=== PATIENT | female | born 1965 | race Caucasian/White ===

== ENCOUNTER → 2023-04-24 17:30 | Outpatient (REF) | payer BC, SELFPAY | LOC: HWWDC 17:30 | PROVIDERS: ATTENDING PHYSICIAN Nurse Practitioner Family | DX: Z13.9 Encounter for screening, unspecified (principal); Z12.31 Encounter for screening mammogram for malignant neoplasm of breast | CPT/HCPCS: 77063; 77067 ==

== ENCOUNTER → 2023-04-29 06:22 | Day surgery (SDC) | payer BC, SELFPAY | LOC: GI 06:22 | PROVIDERS: ATTENDING PHYSICIAN Internal Medicine Gastroenterology; FAMILY PHYSICIAN Nurse Practitioner Family | DX: Z12.11 Encounter for screening for malignant neoplasm of colon (principal); R19.5 Other fecal abnormalities; K57.30 Diverticulosis of large intestine without perforation or abscess without bleeding; K64.0 First degree hemorrhoids; D12.4 Benign neoplasm of descending colon; D12.2 Benign neoplasm of ascending colon; D12.3 Benign neoplasm of transverse colon; D12.5 Benign neoplasm of sigmoid colon; K63.5 Polyp of colon; Z80.0 Family history of malignant neoplasm of digestive organs | CPT/HCPCS: 45385; 45381; 45380; 88305 ==

== ENCOUNTER 2023-05-25 20:46 | Emergency (ER) | payer BC, SELFPAY ==
[2023-05-25 20:49] VITALS: BP 140/82
--- NOTE | 2023-05-25 21:24 | ED.SKININJ ---
HPI-Injury
General
Chief Complaint: Skin Surface Trauma
Source: patient
Exam Limitations: none
Time Seen by Provider: 05/25/23 21:02
Travel History
Have you had any contact with someone who has COVID-19?: No
Do you have any symptoms of coronavirus? Fever > 100 degrees, chills, cough, shortness of breath, sore throat, loss of taste or smell, muscle aches, or headache?: No
History of Present Illness-Injury
Is this injury a work related problem?: No
Is pt an associate of [facility]?: No
Initial Injury comments:
This is a 57 year old female that comes in with c/o laceration to her finger. States that she was taking out the trash and the bag broke. States that she went to put in into another bag and cut her finger either with a cat food or dog can. States
that she is up to date on her Tetanus. Denies any fever, chills, chest pain, SOB, abd pain, nausea, vomiting, diarrhea, headache, dizziness.
Past History
Past History
ED Past Medical History: None; Negative Asthma, HTN, Hypercholesterolemia or NIDDM
ED Past Surgical History: Appendectomy and Other (Cyst removed from left knee)
Social History
Tobacco: Former smoker
Alcohol: Occasional
Drug: None
Personal: Single
Living: with family
Employment: Employed
Family History
Family History: Other (Noncontributory)
Review of Systems
Review of Systems
All Other Systems: ROS reviewed and negative except as documented in HPI and ROS
Constitutional: Reports no symptoms; Denies fever or chills
EENT: Reports no symptoms
Respiratory: Reports no symptoms; Denies cough or trouble breathing
Cardiac: Reports no symptoms; Denies chest pain
ABD/GI: Reports no symptoms; Denies abdominal pain, nausea, vomiting or diarrhea
: Reports no symptoms
Musculoskeletal: Reports no symptoms
Skin: Reports other (Laceration to the right third finger)
Neurological: Reports no symptoms; Denies dizzy or headache
Psychiatric: Reports no symptoms
Skin Exam
Laceration
Right Third Finger:
Length in cm: 3
Orientation: horizontal
Type of Laceration: simple
Any active bleeding?: low grade venous oozing
Distal skin color and temperature: normal-warm & good color
Normal distal neurovascular exam: Yes
Range of motion: full
Phy Exam
General Physical Exam
General Presentation: well appearing and no apparent distress
General age: appears stated age
General Skin: warm and dry
General Habitus: normal
General Mental: alert
General Hydration: appears well hydrated
Eye Exam
Eye Exam: EOMI
Musculoskeletal Exam
Musculoskeletal Exam: full ROM, no edema and other ( Patient able to flex finger and push against resistance without difficulty)
Skin Exam
Skin Exam: normal color, warm/dry, no rash, no petechia and laceration (Right proximal third finger)
Psychiatric Exam
Psychiatric Exam: normal mood/affect
Course
Vital Signs
Initial and Last Documented VS:
Initial Vital Signs
Temp Pulse Resp BP Pulse Ox
98 F 80 18 140/82 96
05/25/23 20:49 05/25/23 20:49 05/25/23 20:49 05/25/23 20:49 05/25/23 20:49
Last Documented Vital Signs
Temp Pulse Resp BP Pulse Ox
98 F 80 18 140/82 96
05/25/23 20:49 05/25/23 20:49 05/25/23 20:49 05/25/23 20:49 05/25/23 20:49
Procedures
Laceration Closure
Right Proximal Third Finger:
Status of Wound: clean
Size of Wound in cm: 3
Description of Wound Edges: sharp
Preparation: cleaned with saline
Anesthesia: 1% Lidocaine
Revision/Debridement: routine- no revision
Wound exploration: explored to base- no FB
Type of Closure: single layer closure
Skin Closure Material: 3-0 nylon
Number of sutures: 7
MDM/Problems Addressed
Differential Diagnosis Includes:
laceration finger
MDM/Problems Addressed:
This is a 57 year old female that comes in with c/o lacerationto the right third finger. States that she cut this on a cat or dog food can as she was taking out the trash and the bag broke. States that she is up to date on her Tetanus.
Will suture and discharge patient home.
Chronic conditions affecting care:
NA
Acute Exacerbation and/or Progression of Chronic Illness:
NA
*Pulse Oximetry
Patient hypoxic: no
*EKG
Interpreted by ED Provider?: NA
Rate: EKG- N/A
*Study Abroad Coordinator Interpretation
Rate: Study Abroad Coordinator- N/A
*Critical Care Note
Total Time (30-74mins, 75-104mins- exclusive of procedures): Not Applicable
ED Attending Note
-
Portions of this chart may have been created with voice recognition software.� Occasional wrong word or��sound alike� substitutions may have occurred due to the inherent limitations of voice recognition software.
Discharge Plan
Departure
Patient Disposition: Home (Routine Discharge)
Date of Disposition: 05/25/23
Time of Disposition: 21:31
Patient with high blood pressure during this ER visit?: Yes
Condition: Good
Covid-19: Not Applicable
Discharge Problem:
Laceration of finger of right hand
Instructions: Laceration Repair With Stitches (DC), BLOOD PRESSURE
Prescriptions:
No Action
acetaminophen 325 MG tablet
650 mg PO Q4HPRN PRN (Reason: pain/fever) Qty: 0 0RF
codeine-guaifenesin [Guaiatussin AC] 10 ML liquid
10 ml PO Q4HPRN PRN (Reason: cough) Qty: 0 0RF
azithromycin [Zithromax] 500 MG tablet
500 mg PO DAILY Qty: 4 0RF
prednisone 10 MG tablet
10 mg PO .TAPER Qty: 30 0RF
Rx Instructions:
Take 40mg daily x2days, 30mg daily x2days, 20mg daily x2days, 10mg daily x2days.
cefuroxime axetil 500 MG tablet
500 mg PO BID Qty: 10 0RF
levalbuterol tartrate 1 PUFF HFA aerosol inhaler
2 puff inhalation R TID Qty: 1 0RF
Activity Restrictions/Additional Instructions:
As discussed, you had a laceration repair with 7 sutures placed. Please keep this dry for the next 24 hours. After this you may gently wash with warm soapy water and pat. Follow up with the familly doctor in the next 10-14 days for suture removal.
IF YOU HAVE ANY REDNESS, OR DRAINAGE OR YOU HAVE ANY OTHER CONCERNS PLEASE RETURN TO THE EMERGENY ROOM.
Interventions
Interventions:
*Risk Screen - Suicide Last Done: 05/25/23 20:49
*Neglect/Abuse Screening Last Done: 05/25/23 20:49
ED-Skin Assessment Last Done: 05/25/23 21:18
== END 2023-05-25 21:35 | disposition home or self-care (01) ==
LOC: EMR 20:46
PROVIDERS: EMERGENCY PHYSICIAN Student in an Organized Health Care Education/Training Program; FAMILY PHYSICIAN Nurse Practitioner Family
DX: S61.212A Laceration without foreign body of right middle finger without damage to nail, initial encounter (principal); W26.8XXA Contact with other sharp object(s), not elsewhere classified, initial encounter; Z87.891 Personal history of nicotine dependence; R03.0 Elevated blood-pressure reading, without diagnosis of hypertension
CPT/HCPCS: 99282; 12002

== ENCOUNTER 2023-07-19 07:05 | Day surgery (SDC) | payer BC, SELFPAY ==
[2023-07-19 09:06] VITALS: BP 132/74
[2023-07-19 09:33] VITALS: BMI 26.8
[2023-07-19 11:39] VITALS: BP 112/96
[2023-07-19 11:45] VITALS: BP 101/66
[2023-07-19 12:00] VITALS: BP 99/60
== END 2023-07-19 12:24 | disposition home or self-care (01) ==
LOC: GI 07:05
PROVIDERS: ATTENDING PHYSICIAN Internal Medicine Gastroenterology
DX: D12.2 Benign neoplasm of ascending colon (principal); K63.5 Polyp of colon; K64.0 First degree hemorrhoids; K57.30 Diverticulosis of large intestine without perforation or abscess without bleeding
CPT/HCPCS: 45390; 45385; 88305

== ENCOUNTER → 2024-02-04 06:29 | Day surgery (SDC) | payer BC, SELFPAY | LOC: GI 06:29 | PROVIDERS: ATTENDING PHYSICIAN Internal Medicine Gastroenterology | DX: Z09 Encounter for follow-up examination after completed treatment for conditions other than malignant neoplasm (principal); Z86.0100 Personal history of colon polyps, unspecified; K57.30 Diverticulosis of large intestine without perforation or abscess without bleeding; K64.0 First degree hemorrhoids; K63.89 Other specified diseases of intestine; K63.5 Polyp of colon; D12.4 Benign neoplasm of descending colon; Z98.890 Other specified postprocedural states | CPT/HCPCS: 45380; 88305 ==

== ENCOUNTER → 2024-08-12 07:30 | Outpatient (REF) | payer BC, SELFPAY | LOC: HWWDC 07:30 | PROVIDERS: ATTENDING PHYSICIAN Nurse Practitioner Family | DX: Z12.31 Encounter for screening mammogram for malignant neoplasm of breast (principal) | CPT/HCPCS: 77063; 77067 ==